=== PATIENT | female | born 1945 | race Caucasian/White ===

== ENCOUNTER 2018-03-11 16:16 | Outpatient (CLI) | payer MEDICARE, OTHER ==
[2018-03-11 17:34] LABS: INR-International Normal Ratio 1.2; PTT 28.5 SEC (22.9-36.1); Prothrombin Time 15.8 SEC (12.0-14.7)
[2018-03-11 17:49] LABS: Anion Gap 12 mmol/L (10-20); BUN (Urea Nitrogen) 17 mg/dL (9.8-20.1); Calc. Creatinine Clearance 0 mL/min (70-130); Calcium 8.7 mg/dL (7.8-10.44); Carbon Dioxide 27 mmol/L (23-31); Chloride 100 mmol/L (98-107); Estimated GFR-MDRD 42; Glucose 444 mg/dL (80-115); Potassium 4.2 mmol/L (3.5-5.1); Sodium 135 mmol/L (136-145)
[2018-03-11 18:11] LABS: Mean Corpuscular Hemoglobin 26.3 pg (27.0-31.0); Mean Platelet Volume 10.4 fL (7.4-10.4); Platelet Count 107 thou/uL (130-400); RBC Distribution Width 13.5 % (11.5-14.5); Red Blood Cell (RBC) Count 4.93 mill/uL (4.20-5.40); White Blood Cell (WBC) Count 9.9 thou/uL (4.8-10.8)
== END 2018-03-11 16:17 | disposition home or self-care (01) ==
LOC: LABBT 16:16
PROVIDERS: ATTEND Neurological Surgery
DX: Z01.812 Encounter for preprocedural laboratory examination (principal); M54.16 Radiculopathy, lumbar region
CPT/HCPCS: 80048; 85027; 85610; 85730

== ENCOUNTER 2018-03-13 05:37 | Day surgery (SDC) | payer MEDICARE, OTHER ==
[2018-03-11 16:29] VITALS: BMI 29.7
--- NOTE | 2018-03-13 01:21 | HP ---
HISTORY OF PRESENT ILLNESS: Ms. Harrison is a very pleasant 72-year-old woman presenting for evaluation of roughly 2-3 months' worth of severe lower back pain on the left side associated with left lower ex tremity L5 pains. This has been present since falling earlier this year. She has had physical thera py with a little to no improvement. She has not had epidural steroid injections yet; however, prefer s not to pursue them. MRI from [facility] reveals lateral disk herniation at L5 with thin foramen fitting her symptoms well. She was referred to discuss possible compression fracture; however, her MRI reveals the presence of superior endplate Schmorl node at T12 and an inferior one at L4, none of which I believe are any consequence to her. PAST MEDICAL HISTORY: Significant for hypertension, diabetes, heart failure, and cirrhosis of the li aggie. CURRENT MEDICATIONS: Include insulin, alprazolam, gabapentin, prednisone, valsartan, potassium, furo semide, carvedilol, and methocarbamol. ALLERGIES: CODEINE, TRAMADOL, and TRAZODONE. PAST SURGICAL HISTORY: Includes hysterectomy, bladder lift, breast biopsy, cervical disk surgery uns pecified, carpal tunnel bilaterally, bilateral knee replacements, pins in the right foot, cholecystec jose, hiatal herniorrhaphy, and a facelift procedure. PHYSICAL EXAMINATION: NEUROLOGIC: The patient is alert and oriented x3. Her gait is severely antalgic and is actually amb ulating using a walker. Lower extremity motor exam is normal. Reflexes are equal and present bilate rally at the patella. ASSESSMENT: Lumbar radiculopathy. PLAN: Discussed the case with Dr. Blankenship who met with the patient, reviewed imaging and advocated for a left L5 foraminotomy. He explained to the patient the risks, benefits, and alternatives to the pr ocedure. The patient expressed understanding and would like to move forward with surgery as june richardson. I do believe the patient is mentally competent and capable of making medical decisions for hersel f and we will move forward with surgery as planned. Darren Sheriff PA-C, dictating for Dr. Blankenship.
[2018-03-13] MEDS ORDERED: Midazolam HCl 2 mg/2 ml Vial ONE (06:11)
[2018-03-13] MEDS ORDERED: Fentanyl 250 MCG/5 ML VIAL ONE (06:11)
[2018-03-13] MEDS ORDERED: Bupivacaine HCl 0.5%/Epinephrine 1:200,000/PF 30 ml Vial ONE (06:16)
[2018-03-13] MEDS ORDERED: Thrombin 5000 UNITS/5 ML VIAL ONE (06:16)
[2018-03-13] MEDS ORDERED: CEFAZOLIN/Water 2 GM/20 ML SYRINGE ONE ×2 (06:26→11:32)
[2018-03-13] MEDS ORDERED: Ondansetron HCl/PF 4 MG/2 ML Vial ONE ×2 (07:04→12:35)
[2018-03-13] MEDS ORDERED: Promethazine HCl 25 MG/ML VIAL SLOW IVP PRN (07:51)
[2018-03-13] MEDS ORDERED: Ondansetron HCl/PF 4 MG/2 ML Vial IVP PRN (07:51)
[2018-03-13] MEDS ORDERED: Fentanyl 100 MCG/2 ML VIAL ONE (08:53)
[2018-03-13] MEDS ORDERED: diphenhydrAMINE 50 MG/ML VIAL ONE (12:35)
[2018-03-13] MEDS ORDERED: Glycopyrrolate 0.2 MG/ML 5 ML SYRINGE ONE (12:35)
[2018-03-13] MEDS ORDERED: Lidocaine 1% PF 5 ML VIAL ONE (12:35)
[2018-03-13] MEDS ORDERED: Dexamethasone 20 MG/5 ML VIAL ONE (12:35)
[2018-03-13] MEDS ORDERED: Naloxone HCl 0.4 mg/ml Vial ONE (12:35)
[2018-03-13] MEDS ORDERED: PHENYLEPHRINE-NS 100 MCG/ML 10 ML SYRINGE ONE (12:35)
[2018-03-13] MEDS ORDERED: PROPOFOL 200 MG/20 ML VIAL ONE (12:35)
--- NOTE | 2018-03-14 13:25 | OP ---
DATE OF PROCEDURE: 03/13/2018 SURGEON: Rayray Blankenship M.D. ADVANCED REGISTERED NURSE: Darren Sheriff PA-C INDICATION: Pain. DIAGNOSIS: Lumbar radiculopathy. PROCEDURES: Left L5 medial facetectomy, foraminotomy, decompression. ANESTHESIA: General. TECHNIQUE: The patient was brought into the operating room and placed under general anesthesia. She was flipped from a supine or prone position on the operating room table. A linear incision was plan bhakti over the L5 segment. After prepping and draping and after an appropriate operative pause, the in cision was created. Soft tissues were swept left of midline and a self-retaining retractor was place d in the wound for optimal exposure. After confirming the appropriate level with serum fluoroscopy, an Adson rongeur was used to remove the lamina of L5 along the inferior aspect. A high-speed cutting drill bit as well as 2, 3 and 4 mm Kerrisons used to extend the laminectomy into the medial aspect o f the facet joint where a foraminotomy was performed of the exiting L5 nerve root. A portion of the superior articulating facet of S1 was removed to further decompress the foramen. The L5 nerve root w as decompressed as it left the foramen on the left. The wound was irrigated. Hemostasis was maintai bhakti throughout. The wound was then closed in anatomic layers and a pressure dressing was applied. T here were no known procedural complications.
== END 2018-03-13 12:40 | disposition home or self-care (01) ==
LOC: SDC 05:37
PROVIDERS: ATTEND Neurological Surgery
PROC: 01NB0ZZ Release Lumbar Nerve, Open Approach (ICD-10-PCS; principal; 2018-03-13)
DX: M54.16 Radiculopathy, lumbar region (principal); I11.0 Hypertensive heart disease with heart failure; I50.9 Heart failure, unspecified; K74.60 Unspecified cirrhosis of liver; E11.40 Type 2 diabetes mellitus with diabetic neuropathy, unspecified; Z79.4 Long term (current) use of insulin; Z79.52 Long term (current) use of systemic steroids; Z79.82 Long term (current) use of aspirin; Z79.899 Other long term (current) drug therapy; Z88.1 Allergy status to other antibiotic agents; Z88.5 Allergy status to narcotic agent; Z88.8 Allergy status to other drugs, medicaments and biological substances
CPT/HCPCS: 36416; 76001; 96374; J0670; J1100; J1200; J2001; J2250; J2310; J2405; J2704; J3010

== ENCOUNTER 2018-03-15 09:29 | Inpatient (IN) | payer MEDICARE, OTHER ==
--- NOTE | 2018-03-15 09:55 | RAD ---
PORTABLE AP CHEST XRAY: DATE: 03/15/18. HISTORY: Dyspnea. The patient had surgery on Sunday at L5 now having trouble breathing and is vomiting. COMPARISON: 09/11/16. FINDINGS: Cardiac silhouette is magnified by projection but does appear mildly enlarged. Pulmonary vasculature is also borderline increased. Bilateral pleural effusions and atelectasis noted on the prior study have resolved. Lungs are otherwise clear. No other interval change. IMPRESSION: Cardiomegaly with borderline increase in the central pulmonary vasculature. POS: [facility]
[2018-03-15 10:33] LABS: #Basophils 0.1 thou/uL (0.0-0.2); #Eosinphils 0.2 thou/uL (0.0-0.7); #Lymphocytes 1.4 thou/uL (1.20-3.40); #Monocytes 1.7 thou/uL (0.11-0.59); #Neutrophils 9.5 thou/uL (1.40-6.50); %Basophils 0.5 % (0.0-1.0); %Eosinophils 1.8 % (0.0-10.0); %Lymphocytes 10.9 % (21.0-51.0); %Monocytes 13.1 % (0.0-10.0); %Neutrophils 73.6 % (42.0-75.0); Hemoglobin 12.3 g/dL (12.0-16.0); Mean Corpuscular HGB CONC 31.5 g/dL (32.0-36.0); Mean Corpuscular Hemoglobin 26.2 pg (27.0-31.0); Mean Corpuscular Volume 83.2 fl (81.0-99.0); Mean Platelet Volume 10.6 fL (7.4-10.4); Platelet Count 119 thou/uL (130-400); RBC Distribution Width 13.7 % (11.5-14.5); White Blood Cell (WBC) Count 12.9 thou/uL (4.8-10.8)
[2018-03-15] MEDS ORDERED: Furosemide 100 MG/10 ML VIAL ONE (10:41)
[2018-03-15] MEDS ORDERED: Nitroglycerin 2% Ointment 1 INCH/1 GM Packet ONE (10:41)
[2018-03-15] MEDS ORDERED: Ondansetron ODT 8 MG TAB ONE (10:41)
[2018-03-15 10:46] LABS: ALT (SGPT) 20 U/L (8-55); AST (SGOT) 34 U/L (5-34); Alkaline Phosphatase 85 U/L (40-150); Anion Gap 14 mmol/L (10-20); BUN (Urea Nitrogen) 21 mg/dL (9.8-20.1); Bilirubin, Total 1.1 mg/dL (0.2-1.2); CK (CPK) 96 U/L (29-168); Calc. Creatinine Clearance 0 mL/min (70-130); Calcium 9.1 mg/dL (7.8-10.44); Carbon Dioxide 25 mmol/L (23-31); Chloride 104 mmol/L (98-107); Estimated GFR-MDRD 50; Globulin 3.2 g/dL (2.4-3.5); Glucose 220 mg/dL (80-115); Magnesium 1.9 mg/dL (1.6-2.6); Potassium 4.1 mmol/L (3.5-5.1); Protein, Total 6.2 g/dL (6.0-8.3); Sodium 139 mmol/L (136-145)
[2018-03-15 10:51] LABS: CKMB 2.5 ng/mL (0-6.6); Troponin I 0.017 ng/mL (< 0.028)
[2018-03-15] MEDS ORDERED: Labetalol HCl 100 MG/20 ML VIAL ONE (11:50)
--- NOTE | 2018-03-15 11:55 | CT ---
CT ANGIGORAM THORAX WITH IV CONTRAST AND 3D RECONSTRUCTIONS: Date: 03/15/18 HISTORY: Dyspnea. Patient also complains of lower back pain. Patient is post lumbar surgery on Sunday. Leslie ent also reports cough that started yesterday and trouble breathing, which has worsened today. FINDINGS: No filling defects are seen in the pulmonary arteries to suggest a pulmonary embolus. Vascular calcifications are seen in the thoracic aorta. Thoracic aorta is normal in caliber. Thoracic aorta is not well opacified to evaluate for aortic dissection. There is no evidence of lymphadenopathy. There is a very tiny left pleural effusion present. There is mild dependent atelectasis bilaterally. There is a tiny, 5.0 mm, pulmonary nodule lateral aspect right upper lobe, as well as a small, less t chiang 4.0 mm, pulmonary nodule seen at the posterior leg lung base. Pulmonary nodule at the left lung b ase was imaged on a CT abdomen on 05/27/16, at which time there was an adjacent nodular density which has now resolved. No additional pulmonary nodule is present. There is a 2.2 cm hypodense lesion posterior aspect dome of the liver. This was present on the prior CT abdomen dated 05/27/16, but measured smaller in size at 1.5 cm. However, differences in measuremen t could be secondary to not only slice selection but differences in pre and postcontrast imaging. Nev ertheless, this is incompletely characterized or evaluated on each of these studies and CT abdomen fo [facility] liver mass protocol is recommended for further evaluation. Again noted is nodular contour of the liver suggesting cirrhosis. Post cholecystectomy changes are imaged. Postsurgical changes in the region of the GE junction are noted. The osseous structures are intact aside from mild degenerative changes in the thoracic spine. IMPRESSION: 1. Hypodense mass posterior dome of liver. Measurements on this examination have increased from prio r study, but this may be a factor of slice selection and/or secondary to difference in pre and postco ntrast imaging. Further characterization is recommended. CT abdomen following hepatic mass protocol i s recommended. 2. Small pulmonary nodules in the right upper lobe and left lower lobe, each of which measures less than 5.0 mm. 3. Atelectasis bilaterally with mild interstitial thickening at each lung base, which is nonspecific . 4. No CT evidence of a pulmonary embolus. 5. Tiny left pleural effusion. POS: [facility]
[2018-03-15] MEDS ORDERED: Mag-Al 1200 mg/1200 mg/30 ML UDCUP PO PRN (11:57)
[2018-03-15] MEDS ORDERED: Calcium Carbonate 500 MG ChewTAB PO PRN (11:57)
[2018-03-15] MEDS ORDERED: Dextrose 5% in Water 1,000 ML IV PRN (11:57)
[2018-03-15] MEDS ORDERED: Senokot 8.6 MG TAB PO PRN (11:57)
[2018-03-15] MEDS ORDERED: Bisacodyl 5 MG TAB PO PRN (11:57)
[2018-03-15] MEDS ORDERED: HumaLOG 300 UNITS/3 ML VIAL SC PRN (11:57)
[2018-03-15] MEDS ORDERED: Dextrose 50% Abboject 50 ML SYRINGE SLOW IVP PRN (11:57)
[2018-03-15] MEDS ORDERED: Acetaminophen 325 MG TAB PO PRN (11:57)
[2018-03-15] MEDS ORDERED: Ondansetron HCl/PF 4 MG/2 ML Vial IVP PRN (11:57)
[2018-03-15] MEDS ORDERED: cloNIDine 0.1 MG TAB PO PRN (12:00)
[2018-03-15] MEDS ORDERED: hydrALAZINE 20 MG/ML VIAL SLOW IVP PRN (12:00)
[2018-03-15 13:36] VITALS: BMI 30.1
[2018-03-15 13:52] LABS: Bilirubin Negative (Negative); Blood, Urine Negative (Negative); Clarity CLEAR (Clear); Glucose, Urine (Dipstick) Negative (Negative); Leukocyte Negative (Negative); Nitrite Negative (Negative); Protein, Urine (Dipstick) Negative (Neg-Trace); Specific Gravity, Urine 1.013 (1.002-1.036); Urobilinogen 0.2 mg/dL (0.2-1.0)
[2018-03-15 14:20] LABS: Troponin I 0.016 ng/mL (< 0.028)
[2018-03-15] MEDS ORDERED: ISOVUE-370 76%-LOCM 1 ML ONE (15:11)
[2018-03-15] MEDS: Furosemide 40 MG/4 ML VIAL SLOW IVP SCH (15:18)
--- NOTE | 2018-03-15 15:21 | HP ---
DATE OF ADMISSION: 03/15/2018 PRIMARY CARE PHYSICIAN: Ricardo Parada M.D. PRIMARY ESCROW PROCESSOR: John Shahid M.D. CHIEF COMPLAINT: Worsening shortness of breath. HISTORY OF PRESENT ILLNESS: Ms. Harrison is a 72-year-old female with past medical history of congestive heart failure, diabetes mellitus, hypertension, and gout, who presented to the emergency room with t he complaints of worsening shortness of breath. History is mainly obtained by the patient herself an d electronic medical records have been reviewed. Ms. Harrison underwent surgery of L5 facetectomy, foraminotomy, and decompression on 03/13/[address] Maurilio manriquez. Since her discharge, she felt okay, but yesterday she started to have shortness of breath that progressively got worse. She also had one episode of vomiting this morning. She reports feeling poo rly and has malaise without any cough, fever, or chills. She denies any other recent illnesses or si ck contacts. Upon presentation to the emergency room, she was saturating 93% under room air, but with conversation , her oxygen saturations were dropping in the low 80s to mid 80s. She was started on oxygen and furt her workup was initiated. She had a 12-lead EKG, which showed some ST-depression in the lateral lead s and a chest x-ray, which was consistent with pulmonary vascular congestion. She also underwent a C T angio of the chest, which was negative for any pulmonary embolism or infiltrate. She was also foun d to be somewhat hypertensive in the systolic of 170s. Her lab work was consistent with leukocytosis with WBCs of 12.9 and the most striking finding was a BNP of over 1000. She was diagnosed as having an acute flare of congestive heart failure and received aspirin, nitro paste, labetalol, and 80 mg o f Lasix x1 in the ER, and is now being admitted for acute hypoxic respiratory failure secondary to [place] congestive heart failure exacerbation. The patient reports that Dr. Shahid has diagnosed her with congestive heart failure, but she is unsur e what type. She also does not recall what her cardiac function is. PAST MEDICAL HISTORY: 1. Congestive heart failure, unspecified type. 2. Hypertension. 3. Diabetes mellitus, type 2. 4. Fatty liver with cirrhosis on CT scan in 2016. 5. Varices. 6. Lichen planus. PAST SURGICAL HISTORY: 1. Hysterectomy. 2. Bladder lift. 3. Breast biopsy. 4. Cervical disk surgery. 5. Carpal tunnel bilaterally. 6. Bilateral knee replacement. 7. Pins of the right foot. 8. Cholecystectomy. 9. Hiatal herniorrhaphy. 10. Facelift. ALLERGIES: CODEINE, TRAMADOL, TRAZODONE. FAMILY HISTORY: Significant for multiple family members with cardiac disease. Her mother and her si ster had heart attacks. Her son got diagnosed with cardiomyopathy and had a pacemaker inserted 2 mon ths ago. One of her nephews in his 40s of heart attack. SOCIAL HISTORY: She lives with her family and has no history of drug, tobacco or alcohol abuse. CURRENT MEDICATIONS: According to the ER record are as follows; alprazolam 0.25 mg daily, gabapentin 400 b.i.d., NovoLog 70/30 100 units b.i.d., Protonix 40 mg daily, prednisone 10 mg daily, valsartan 160 b.i.d., potassium chloride 10 mEq b.i.d., Lasix 40 mg b.i.d., carvedilol 25 b.i.d., Aldactone 25 daily, iron 80 mg daily, vitamin A daily, cholestyramine daily, calcium daily, aspirin 81 mg daily, Z yrtec daily as needed, Benadryl daily as needed, pentazocine/naloxone 50/0.5 mg every 4 hours as need ed, and Keflex 250 mg b.i.d., which she has been taking since her recent surgery of laminectomy. CODE STATUS: DO NOT RESUSCITATE and DO NOT INTUBATE discussed with the patient in detail. REVIEW OF SYSTEMS: The following complete review of systems was negative, unless otherwise mentioned in the HPI or below: Constitutional: Weight loss or gain, ability to conduct usual activities. Skin: Rash, itching. Eyes: Double vision, pain. ENT/Mouth: Nose bleeding, neck stiffness, pain, tenderness. Cardiovascular: Palpitations, dyspnea on exertion, orthopnea. Respiratory: Shortness of breath, wheezing, cough, hemoptysis, fever or night sweats. Gastrointestinal: Poor appetite, abdominal pain, heartburn, nausea, vomiting, constipation, or diarr hea. Genitourinary: Urgency, frequency, dysuria, nocturia. Musculoskeletal: Pain, swelling. Neurologic/Psychiatric: Anxiety, depression. Allergy/Immunologic: Skin rash, bleeding tendency. It is negative except for those mentioned in the history and physical. LABORATORY DATA AND IMAGING DATA: CBC shows WBCs 12.9 with 73% neutrophils, otherwise unremarkable. Serum chemistry shows blood sugar 220 and BUN 21. Cardiac enzymes unremarkable. BNP 1064. Chest x -ray by my review shows evidence of pulmonary vascular congestion. CT angio was negative for pulmona ry embolism and shows mild pleural effusion on the left side. She does have evidence of cardiomegaly . PHYSICAL EXAMINATION: VITAL SIGNS: Upon presentation include blood pressure 167/84, pulse 87, saturating 93% on room air, respirations 24, and temperature 98. GENERAL: No acute distress, awake, alert, oriented x3. HEENT: Mucous membrane is moist and pink. No oropharyngeal exudate or erythema. Head is normocepha lic, atraumatic. Pupils are equal, reactive to light and accommodation. Extraocular movement is int act. NECK: Supple without any lymphadenopathy, JVD or bruit. CHEST: Clear to auscultation with very faint wheezes bilaterally without any significant crackles. CARDIOVASCULAR: Rate and rhythm is regular without any murmur, rubs or gallops. ABDOMEN: Obese, soft, nontender, nondistended, positive bowel sound. No guarding, rebound or rigidi ty. EXTREMITIES: Showed trace pitting edema bilaterally. NEUROLOGIC: Examination is nonfocal. SKIN: Free of any rashes or bruises. I feel warm and dry to touch. BACK: Examination shows Steri-Strips covering the incision in the lower back without erythema, swell ing, drainage. IMPRESSION AND PLAN: 1. Acute hypoxic respiratory failure. This is likely secondary to acute congestive heart failure ex acerbation as evident by the chest x-ray showing pulmonary edema and elevated BNP. She will be admit pauline and we will consult cardiac rehabilitation inpatient and outpatient as well as Heart Failure Clin ic. We will obtain transthoracic echocardiogram and continue the diuresis with strict I's and O's an d fluid restricted diet. 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 Base d on the echocardiogram results, her medication may need to be adjusted. The patient was updated abo ut all of this and verbalized understanding. She will be admitted to telemetry unit. 2. Uncontrolled hypertension. We will restart her home medication as she has missed doses this morn ing because of being in the emergency room. Add p.r.n. medications as needed as well. 3. Diabetes mellitus type 2. We will put her on insulin sliding scale and restart her home medicati ons once confirmed. 4. Leukocytosis, most likely reactive from the most recent surgery of laminectomy. She does not exh ibit any signs and symptoms of infection at this time. We will continue her Keflex that was given pr ophylactically for her. Also check urinalysis to rule out urinary causes as urinary tract infection for leukocytosis. She does not seem to have any evidence of pneumonia at this time. 5. History of nonalcoholic fatty liver. It is unclear if this is a true diagnosis or not. The yesy ent will be continued on pentazocine and naloxone combination along with cholestyramine, Aldactone an d diuretics for now. 6. Code status: DO NOT RESUSCITATE and DO NOT INTUBATE. 7. Deep venous thrombosis and gastrointestinal prophylaxis. 8. Add p.r.n. medications. DISPOSITION: Ms. Harrison is currently being admitted to the hospital for acute hypoxic respiratory fail ure due to acute congestive heart failure exacerbation. Further management will depend upon her clin ical course. Estimated length of stay at this time is at least 2-3 midnights.
[2018-03-15] MEDS ORDERED: Cephalexin 250 MG CAP PO SCH ×2 (15:45→21:30)
[2018-03-15 17:50] LABS: Troponin I 0.024 ng/mL (< 0.028)
[2018-03-15] MEDS ORDERED: Ibuprofen 200 MG TAB PO PRN (18:23)
[2018-03-15] MEDS ORDERED: Carvedilol 25 MG TAB PO SCH (21:15)
[2018-03-15] MEDS ORDERED: predniSONE 5 MG TAB PO SCH (21:30)
[2018-03-15] MEDS ORDERED: Gabapentin 400 MG CAP PO SCH (21:30)
[2018-03-15] MEDS ORDERED: ALPRAZolam 0.25 MG TAB PO SCH (21:30)
[2018-03-15] MEDS ORDERED: Valsartan 80 MG TAB PO SCH (21:30)
[2018-03-16 05:35] LABS: #Eosinphils 0.1 thou/uL (0.0-0.7); #Lymphocytes 0.6 thou/uL (1.20-3.40); #Monocytes 0.5 thou/uL (0.11-0.59); #Neutrophils 5.9 thou/uL (1.40-6.50); %Basophils 0.3 % (0.0-1.0); %Eosinophils 1.3 % (0.0-10.0); %Lymphocytes 8.4 % (21.0-51.0); %Monocytes 7.5 % (0.0-10.0); %Neutrophils 82.4 % (42.0-75.0); Hemoglobin 11.9 g/dL (12.0-16.0); Mean Corpuscular HGB CONC 32.5 g/dL (32.0-36.0); Mean Corpuscular Hemoglobin 27.1 pg (27.0-31.0); Mean Corpuscular Volume 83.4 fl (81.0-99.0); PLT Morphology Comment Appears Decreased; Platelet Count 88 thou/uL (130-400); RBC Distribution Width 13.5 % (11.5-14.5); Red Blood Cell (RBC) Count 4.41 mill/uL (4.20-5.40); White Blood Cell (WBC) Count 7.1 thou/uL (4.8-10.8)
[2018-03-16 05:40] LABS: Anion Gap 11 mmol/L (10-20); BUN (Urea Nitrogen) 20 mg/dL (9.8-20.1); Calc. Creatinine Clearance 60 mL/min (70-130); Calcium 8.8 mg/dL (7.8-10.44); Carbon Dioxide 30 mmol/L (23-31); Chloride 102 mmol/L (98-107); Estimated GFR-MDRD 48; Glucose 316 mg/dL (80-115); Potassium 4.7 mmol/L (3.5-5.1); Sodium 138 mmol/L (136-145)
[2018-03-16] MEDS: Furosemide 40 MG/4 ML VIAL SLOW IVP SCH ×2 (06:33→15:02)
[2018-03-16] MEDS: Spironolactone 25 MG TAB PO SCH (08:47)
[2018-03-16] MEDS: Potassium Citrate 10 MEQ TAB PO SCH ×2 (08:47→17:26)
[2018-03-16] MEDS: Carvedilol 25 MG TAB PO SCH ×2 (08:47→20:47)
[2018-03-16] MEDS: Valsartan 80 MG TAB PO SCH ×2 (08:48→20:40)
[2018-03-16] MEDS: Cephalexin 250 MG CAP PO SCH ×2 (08:48→20:39)
[2018-03-16] MEDS: Gabapentin 400 MG CAP PO SCH ×2 (08:48→20:46)
[2018-03-16] MEDS: Enoxaparin Sodium 40 MG/0.4 ML SYRINGE SC SCH (08:49)
[2018-03-16] MEDS ORDERED: Famotidine 20 MG TAB PO SCH (09:00)
[2018-03-16] MEDS ORDERED: Aspirin 325 mg Enteric Coated Tablet PO SCH (09:00)
[2018-03-16] MEDS ORDERED: Pentazocine HCl/Naloxone HCl 50/0.5 MG TAB PO PRN (09:42)
--- NOTE | 2018-03-16 11:11 | PDOC.PN ---
- Subjective Encounter Start Date: 03/16/18 Encounter Start Time: 08:00 -: old records requested/rev Patient seen and examined. No new complaints. No overnight events - Objective Resuscitation Status: Resuscitation Status DNR:Do Not Resuscitate MAR Reviewed: Yes Vital Signs & Weight: Vital Signs (12 hours) Temp Pulse Resp BP BP Pulse Ox 03/16/18 07:17 97.8 F 81 17 140/62 96 03/16/18 04:00 97.9 F 81 18 147/65 H 97 03/16/18 00:00 98.1 F 79 18 131/59 L 98 Weight Weight 179 lb I&O: 03/15/18 03/16/18 03/17/18 06:59 06:59 06:59 Intake Total 1100 Output Total 1050 Balance 50 Result Diagrams: 03/16/18 04:14 03/16/18 04:14 Additional Labs: Accuchecks 03/16/18 03/15/18 03/15/18 06:14 15:41 13:31 POC Glucose 308 H 203 H 143 H Radiology Reviewed by me: Yes (CT angio) EKG Reviewed by me: Yes (NSR) Phys Exam - Physical Examination Constitutional: NAD HEENT: PERRLA, moist MMs, sclera anicteric Neck: no JVD, supple Respiratory: no wheezing, no rales, no rhonchi Cardiovascular: RRR, no significant murmur, no rub Gastrointestinal: soft, non-tender, no distention, positive bowel sounds Musculoskeletal: no edema, pulses present Neurological: non-focal, normal sensation, moves all 4 limbs Psychiatric: normal affect, A&O x 3 Skin: no rash, normal turgor Dx/Plan (1) Acute on chronic congestive heart failure Code(s): I50.9 - HEART FAILURE, UNSPECIFIED Status: Acute (2) Acute respiratory failure with hypoxia Code(s): J96.01 - ACUTE RESPIRATORY FAILURE WITH HYPOXIA Status: Acute (3) Thrombocytopenia Code(s): D69.6 - THROMBOCYTOPENIA, UNSPECIFIED Status: Acute (4) Cirrhosis, non-alcoholic Status: Chronic (5) Diabetes type 2, controlled Code(s): E11.9 - TYPE 2 DIABETES MELLITUS WITHOUT COMPLICATIONS Status: Chronic (6) Hiatal hernia Code(s): K44.9 - DIAPHRAGMATIC HERNIA WITHOUT OBSTRUCTION OR GANGRENE Status: Chronic (7) Hypertension Code(s): I10 - ESSENTIAL (PRIMARY) HYPERTENSION Status: Chronic (8) S/P lumbar laminectomy Code(s): Z98.890 - OTHER SPECIFIED POSTPROCEDURAL STATES Status: Chronic - Plan cont current plan of care, continue antibiotics * medication reviewed as below * symptomatic treatment * restart her home pain meds * echo pending * wbc is related with prednisone. Review of Systems - Review of Systems Eyes: negative: Pain, Vision Change, Conjunctivae Inflammation, Eyelid Inflammation, Redness, Other ENT: negative: Ear Pain, Ear Discharge, Nose Pain, Nose Discharge, Nose Congestion, Mouth Pain, Mouth Swelling, Throat Pain, Throat Swelling, Other Respiratory: negative: Cough, Dry, Shortness of Breath, Hemoptysis, SOB with Excertion, Pleuritic Pain, Sputum, Wheezing Cardiovascular: negative: chest pain, palpitations, orthopnea, paroxysmal nocturnal dyspnea, edema, light headedness, other Gastrointestinal: negative: Nausea, Vomiting, Abdominal Pain, Diarrhea, Constipation, Melena, Hematochezia, Other Genitourinary: negative: Dysuria, Frequency, Incontinence, Hematuria, Retention , Other Musculoskeletal: Back Pain. negative: Neck Pain, Shoulder Pain, Arm Pain, Hand Pain, Leg Pain, Foot Pain, Other Skin: negative: Rash, Lesions, Ned, Bruising, Other - Medications/Allergies Allergies/Adverse Reactions: Allergies Allergy/AdvReac Type Severity Reaction Status Date / Time clindamycin Allergy "severe Verified 07/07/16 12:37 diarrhea" codeine Allergy itching Verified 07/07/16 12:37 cyproheptadine Allergy itching Verified 07/07/16 12:37 doxepin Allergy "high Verified 07/07/16 12:37 anxiety" hydrocodone bitartrate Allergy "puts me Verified 07/07/16 12:37 [From Vicodin] up on the ceiling" levofloxacin [From Levaquin] Allergy "nausea Verified 07/07/16 12:37 and diarrhea" tramadol Allergy Headache Verified 03/11/18 16:31 trazodone Allergy "could not Verified 07/07/16 12:37 sleep, confused; high anxiety" Medications: Current Medications Acetaminophen (Tylenol) 650 mg PO Q4H PRN PRN Reason: Headache/Fever or Pain Last Admin: 03/15/18 18:21 Dose: 650 mg Al Hydroxide/Mg Hydroxide (Maalox) 30 ml PO Q6H PRN PRN Reason: Heartburn or Indigestion Alprazolam (Xanax) 0.25 mg PO HS [facility] Aspirin (Aspirin Chewable) 81 mg PO QAM [facility] Last Admin: 03/16/18 08:47 Dose: 81 mg Bisacodyl (Dulcolax) 10 mg PO DAILYPRN PRN PRN Reason: Constipation Calcium Carbonate (Tums) 1,000 mg PO Q4H PRN PRN Reason: Heartburn or Indigestion Carvedilol (Coreg) 25 mg PO BID [facility] Last Admin: 03/16/18 08:47 Dose: 25 mg Cephalexin (Keflex) 500 mg PO BID [facility] Last Admin: 03/16/18 08:48 Dose: 500 mg Clonidine (Catapres) 0.1 mg PO Q4H PRN PRN Reason: sbp>160 Dextrose/Water (Dextrose 50%) 25 gm SLOW IVP PRN PRN PRN Reason: Hypoglycemia Enoxaparin Sodium (Lovenox) 40 mg SC 0900 [facility] Last Admin: 03/16/18 08:49 Dose: 40 mg Furosemide (Lasix) 40 mg SLOW IVP 0600,1400 [facility] Last Admin: 03/16/18 06:33 Dose: 40 mg Gabapentin (Neurontin) 400 mg PO BID [facility] Last Admin: 03/16/18 08:48 Dose: 400 mg Glucagon (Glucagon) 1 mg IM PRN PRN PRN Reason: Hypoglycemia Hydralazine HCl (Apresoline) 10 mg SLOW IVP Q4H PRN PRN Reason: sbp>170 Dextrose/Water (D5w) 1,000 mls @ 0 mls/hr IV .Q0M PRN; As Directed PRN Reason: Hypoglycemia Ibuprofen (Motrin) 400 mg PO BID PRN PRN Reason: Mild Pain (1-3) Insulin Human Lispro (Humalog) 0 units SC .MODERATE SLIDING SC PRN PRN Reason: Moderate Correctional Scale Last Admin: 03/16/18 11:13 Dose: 10 unit Insulin Human Lispro (Humalog) 0 units SC .BEDTIME SLIDING SC PRN PRN Reason: Bedtime Correctional Scale Ondansetron HCl (Zofran) 4 mg IVP Q6H PRN PRN Reason: Nausea/Vomiting Pantoprazole Sodium (Protonix) 40 mg PO DAILY [facility] Last Admin: 03/16/18 08:48 Dose: 40 mg Pentazocine HCl/Naloxone HCl (Talwin Nx) 1 tab PO Q4H PRN PRN Reason: Pain Last Admin: 03/16/18 10:02 Dose: 1 tab Potassium Citrate (Urocit K) 10 meq PO BID-[facility] Last Admin: 03/16/18 08:47 Dose: 10 meq Prednisone (Prednisone) 10 mg PO 1200 [facility] Last Admin: 03/16/18 11:17 Dose: 10 mg Senna (Senokot) 2 tab PO HSPRN PRN PRN Reason: Constipation Spironolactone (Aldactone) 25 mg PO QAM-[facility] Last Admin: 03/16/18 08:47 Dose: 25 mg Valsartan (Diovan) 160 mg PO BID [facility] Last Admin: 03/16/18 08:48 Dose: 160 mg
[2018-03-16] MEDS: HumaLOG 300 UNITS/3 ML VIAL SC PRN (11:13)
[2018-03-16] MEDS ORDERED: Loperamide HCl 2 MG CAP PO PRN (11:13)
[2018-03-16] MEDS ORDERED: Diabetic Tussin 200 MG/10 ML UDCUP PO PRN (11:13)
[2018-03-16] MEDS ORDERED: Milk Of Magnesia 30 ML UDCUP PO PRN (11:13)
[2018-03-16] MEDS ORDERED: Temazepam 15 MG CAP PO PRN (11:13)
[2018-03-16] MEDS ORDERED: Eucerin (Mineral Oil/Petrolatum,White) 30 gm Jar TOP PRN (11:13)
[2018-03-16] MEDS ORDERED: Artificial Tears 18 DROP/0.9 ML EA EYE PRN (11:13)
[2018-03-16] MEDS ORDERED: Sodium Chloride 0.65% Nasal 44 ML BOT EA NARE PRN (11:13)
[2018-03-16] MEDS ORDERED: Chloraseptic Spray 180 ml Bottle PO PRN (11:13)
[2018-03-16] MEDS: predniSONE 5 MG TAB PO SCH (11:17)
[2018-03-16] MEDS: Insulin NPH/Reg Insulin Hm 300 UNITS/3 ML VIAL SC SCH ×2 (17:26→22:33)
[2018-03-16] MEDS ORDERED: ALPRAZolam 0.25 MG TAB PO SCH ×2 (21:00)
--- NOTE | 2018-03-17 06:00 | PDOC.PN ---
- Subjective Encounter Start Date: 03/17/18 Encounter Start Time: 07:45 Patient seen and examined. No new complaints. No overnight events - Objective Resuscitation Status: Resuscitation Status DNR:Do Not Resuscitate MAR Reviewed: Yes Vital Signs & Weight: Vital Signs (12 hours) Temp Pulse Resp BP Pulse Ox 03/16/18 20:00 98.3 F 93 18 165/72 H 97 Weight Weight 178 lb I&O: 03/15/18 03/16/18 03/17/18 06:59 06:59 06:59 Intake Total 1100 980 Output Total 1050 1700 Balance 50 -720 Result Diagrams: 03/16/18 04:14 03/16/18 04:14 Additional Labs: Accuchecks 03/16/18 03/16/18 03/16/18 21:23 16:21 15:20 POC Glucose 419 H 389 H 281 H 03/16/18 03/16/18 10:34 06:14 POC Glucose 482 H 308 H EKG Reviewed by me: Yes (nsr) Phys Exam - Physical Examination Constitutional: NAD HEENT: PERRLA, moist MMs, sclera anicteric Neck: no JVD, supple Respiratory: no wheezing, no rales, no rhonchi Cardiovascular: RRR, no significant murmur, no rub Gastrointestinal: soft, non-tender, no distention, positive bowel sounds Musculoskeletal: no edema, pulses present Neurological: non-focal, normal sensation, moves all 4 limbs Psychiatric: normal affect, A&O x 3 Skin: no rash, normal turgor Dx/Plan (1) Acute on chronic congestive heart failure Code(s): I50.9 - HEART FAILURE, UNSPECIFIED Status: Acute Qualifiers: Heart failure type: diastolic Qualified Code(s): I50.33 - Acute on chronic diastolic (congestive) heart failure (2) Acute respiratory failure with hypoxia Code(s): J96.01 - ACUTE RESPIRATORY FAILURE WITH HYPOXIA Status: Resolved (3) Thrombocytopenia Code(s): D69.6 - THROMBOCYTOPENIA, UNSPECIFIED Status: Acute (4) Cirrhosis, non-alcoholic Status: Chronic (5) Diabetes type 2, controlled Code(s): E11.9 - TYPE 2 DIABETES MELLITUS WITHOUT COMPLICATIONS Status: Chronic (6) Hiatal hernia Code(s): K44.9 - DIAPHRAGMATIC HERNIA WITHOUT OBSTRUCTION OR GANGRENE Status: Chronic (7) Hypertension Code(s): I10 - ESSENTIAL (PRIMARY) HYPERTENSION Status: Chronic (8) S/P lumbar laminectomy Code(s): Z98.890 - OTHER SPECIFIED POSTPROCEDURAL STATES Status: Chronic - Plan cont current plan of care * increase insulin dose for high sugar * echo result pending * repeat labs tomorrow. * change lasix po * medication reviewed as below * symptomatic treatment * expecting discharge tomorrow Review of Systems - Review of Systems Constitutional: negative: fever, chills, sweats, weakness, malaise, other ENT: negative: Ear Pain, Ear Discharge, Nose Pain, Nose Discharge, Nose Congestion, Mouth Pain, Mouth Swelling, Throat Pain, Throat Swelling, Other Respiratory: negative: Cough, Dry, Shortness of Breath, Hemoptysis, SOB with Excertion, Pleuritic Pain, Sputum, Wheezing Cardiovascular: negative: chest pain, palpitations, orthopnea, paroxysmal nocturnal dyspnea, edema, light headedness, other Gastrointestinal: negative: Nausea, Vomiting, Abdominal Pain, Diarrhea, Constipation, Melena, Hematochezia, Other Genitourinary: negative: Dysuria, Frequency, Incontinence, Hematuria, Retention , Other Musculoskeletal: negative: Neck Pain, Shoulder Pain, Arm Pain, Back Pain, Hand Pain, Leg Pain, Foot Pain, Other Skin: negative: Rash, Lesions, Ned, Bruising, Other - Medications/Allergies Allergies/Adverse Reactions: Allergies Allergy/AdvReac Type Severity Reaction Status Date / Time clindamycin Allergy "severe Verified 07/07/16 12:37 diarrhea" codeine Allergy itching Verified 07/07/16 12:37 cyproheptadine Allergy itching Verified 07/07/16 12:37 doxepin Allergy "high Verified 07/07/16 12:37 anxiety" hydrocodone bitartrate Allergy "puts me Verified 07/07/16 12:37 [From Vicodin] up on the ceiling" levofloxacin [From Levaquin] Allergy "nausea Verified 07/07/16 12:37 and diarrhea" tramadol Allergy Headache Verified 03/11/18 16:31 trazodone Allergy "could not Verified 07/07/16 12:37 sleep, confused; high anxiety" Medications: Current Medications Acetaminophen (Tylenol) 650 mg PO Q4H PRN PRN Reason: Headache/Fever or Pain Last Admin: 03/15/18 18:21 Dose: 650 mg Al Hydroxide/Mg Hydroxide (Maalox) 30 ml PO Q6H PRN PRN Reason: Heartburn or Indigestion Artificial Tears (Tears Naturale) 0 drop EA EYE PRN PRN PRN Reason: Dry Eyes Aspirin (Aspirin Chewable) 81 mg PO QAM [facility] Last Admin: 03/16/18 08:47 Dose: 81 mg Bisacodyl (Dulcolax) 10 mg PO DAILYPRN PRN PRN Reason: Constipation Calcium Carbonate (Tums) 1,000 mg PO Q4H PRN PRN Reason: Heartburn or Indigestion Carvedilol (Coreg) 25 mg PO BID [facility] Last Admin: 03/16/18 20:47 Dose: 25 mg Cephalexin (Keflex) 500 mg PO BID [facility] Last Admin: 03/16/18 20:39 Dose: 500 mg Clonidine (Catapres) 0.1 mg PO Q4H PRN PRN Reason: sbp>160 Dextrose/Water (Dextrose 50%) 25 gm SLOW IVP PRN PRN PRN Reason: Hypoglycemia Enoxaparin Sodium (Lovenox) 40 mg SC 0900 [facility] Last Admin: 03/16/18 08:49 Dose: 40 mg Furosemide (Lasix) 40 mg SLOW IVP 0600,1400 [facility] Last Admin: 03/16/18 15:02 Dose: 40 mg Gabapentin (Neurontin) 400 mg PO BID [facility] Last Admin: 03/16/18 20:46 Dose: 400 mg Glucagon (Glucagon) 1 mg IM PRN PRN PRN Reason: Hypoglycemia Guaifenesin (Robitussin Sf) 200 mg PO Q4H PRN PRN Reason: Cough Hydralazine HCl (Apresoline) 10 mg SLOW IVP Q4H PRN PRN Reason: sbp>170 Dextrose/Water (D5w) 1,000 mls @ 0 mls/hr IV .Q0M PRN; As Directed PRN Reason: Hypoglycemia Ibuprofen (Motrin) 400 mg PO BID PRN PRN Reason: Mild Pain (1-3) Insulin Human Isoph/Insulin Regular (Humulin 70/30) 20 units SC TID [facility] Last Admin: 03/16/18 22:33 Dose: 20 unit Insulin Human Lispro (Humalog) 0 units SC .MODERATE SLIDING SC PRN PRN Reason: Moderate Correctional Scale Last Admin: 03/16/18 11:13 Dose: 10 unit Insulin Human Lispro (Humalog) 0 units SC .BEDTIME SLIDING SC PRN PRN Reason: Bedtime Correctional Scale Loperamide HCl (Imodium) 2 mg PO PRN PRN PRN Reason: Diarrhea/Loose Stools Magnesium Hydroxide (Milk Of Magnesium) 30 ml PO DAILYPRN PRN PRN Reason: Constipation Mineral Oil/White Petrolatum (Eucerin Cream) 0 gm TOP BIDPRN PRN PRN Reason: Dry Skin Ondansetron HCl (Zofran) 4 mg IVP Q6H PRN PRN Reason: Nausea/Vomiting Pantoprazole Sodium (Protonix) 40 mg PO DAILY [facility] Last Admin: 03/16/18 08:48 Dose: 40 mg Pentazocine HCl/Naloxone HCl (Talwin Nx) 1 tab PO Q4H PRN PRN Reason: Pain Last Admin: 03/16/18 10:02 Dose: 1 tab Phenol (Chloraseptic [place] 180 Ml Bot) 0 ml PO PRN PRN PRN Reason: Sore Throat Potassium Citrate (Urocit K) 10 meq PO BID-[facility] Last Admin: 03/16/18 17:26 Dose: 10 meq Prednisone (Prednisone) 10 mg PO 1200 [facility] Last Admin: 03/16/18 11:17 Dose: 10 mg Senna (Senokot) 2 tab PO HSPRN PRN PRN Reason: Constipation Sodium Chloride ([place] Nasal [place] 0.65%) 0 ml EA NARE QIDPRN PRN PRN Reason: Nasal Congestion Spironolactone (Aldactone) 25 mg PO QAM-[facility] Last Admin: 03/16/18 08:47 Dose: 25 mg Temazepam (Restoril) 15 mg PO HSPRN PRN PRN Reason: Insomnia Valsartan (Diovan) 160 mg PO BID [facility] Last Admin: 03/16/18 20:40 Dose: 160 mg
[2018-03-17] MEDS: Furosemide 40 MG/4 ML VIAL SLOW IVP SCH ×2 (06:41→14:18)
[2018-03-17] MEDS: Insulin NPH/Reg Insulin Hm 300 UNITS/3 ML VIAL SC SCH ×3 (08:41→21:37)
[2018-03-17] MEDS: Carvedilol 25 MG TAB PO SCH ×2 (08:42→21:35)
[2018-03-17] MEDS: Gabapentin 400 MG CAP PO SCH ×2 (08:42→21:36)
[2018-03-17] MEDS: Spironolactone 25 MG TAB PO SCH (08:42)
[2018-03-17] MEDS: Cephalexin 250 MG CAP PO SCH ×2 (08:42→21:35)
[2018-03-17] MEDS: Valsartan 80 MG TAB PO SCH ×2 (08:42→21:36)
[2018-03-17] MEDS: Enoxaparin Sodium 40 MG/0.4 ML SYRINGE SC SCH (08:45)
[2018-03-17] MEDS: Potassium Citrate 10 MEQ TAB PO SCH ×2 (08:50→17:38)
[2018-03-17] MEDS: predniSONE 5 MG TAB PO SCH (11:58)
[2018-03-17] MEDS: HumaLOG 300 UNITS/3 ML VIAL SC PRN ×2 (11:58→16:40)
[2018-03-18 05:57] LABS: Anion Gap 13 mmol/L (10-20); BUN (Urea Nitrogen) 21 mg/dL (9.8-20.1); Calc. Creatinine Clearance 58 mL/min (70-130); Carbon Dioxide 29 mmol/L (23-31); Chloride 98 mmol/L (98-107); Estimated GFR-MDRD 46; Glucose 226 mg/dL (80-115); Potassium 3.8 mmol/L (3.5-5.1); Sodium 136 mmol/L (136-145)
[2018-03-18] MEDS ORDERED: Insulin NPH/Reg Insulin Hm 300 UNITS/3 ML VIAL SC SCH (06:47)
[2018-03-18 07:23] VITALS: TEMP 98
[2018-03-18] MEDS: Valsartan 80 MG TAB PO SCH (08:08)
[2018-03-18] MEDS: Potassium Citrate 10 MEQ TAB PO SCH (08:08)
[2018-03-18] MEDS: Carvedilol 25 MG TAB PO SCH (08:09)
[2018-03-18] MEDS: Gabapentin 400 MG CAP PO SCH (08:09)
[2018-03-18] MEDS: Cephalexin 250 MG CAP PO SCH (08:09)
[2018-03-18] MEDS: Enoxaparin Sodium 40 MG/0.4 ML SYRINGE SC SCH (08:09)
[2018-03-18] MEDS: Spironolactone 25 MG TAB PO SCH (08:09)
[2018-03-18] MEDS ORDERED: Furosemide 40 MG TAB PO SCH (09:00)
[2018-03-18] MEDS ORDERED: Potassium Chloride 20 MEQ TAB PO SCH (09:30)
--- NOTE | 2018-03-18 09:40 | PDOC.PN ---
- Subjective Encounter Start Date: 03/18/18 Encounter Start Time: 07:30 Patient seen and examined. No new complaints. No overnight events - Objective Resuscitation Status: Resuscitation Status DNR:Do Not Resuscitate MAR Reviewed: Yes Vital Signs & Weight: Vital Signs (12 hours) Temp Pulse Resp BP Pulse Ox 03/18/18 08:00 98.0 F 77 17 03/18/18 07:21 98.0 F 77 17 151/67 H 93 L 03/18/18 04:00 97.7 F 74 18 133/61 Weight Weight 167 lb 11.2 oz I&O: 03/17/18 03/18/18 03/19/18 06:59 06:59 06:59 Intake Total 1220 1140 Output Total 2900 2500 Balance -1680 -1360 Result Diagrams: 03/16/18 04:14 03/18/18 04:09 Additional Labs: Accuchecks 03/17/18 03/17/18 03/17/18 20:40 16:37 11:00 POC Glucose 436 H 185 H 239 H Radiology Reviewed by me: Yes (echo) EKG Reviewed by me: Yes (nsr) Phys Exam - Physical Examination Constitutional: NAD HEENT: PERRLA, moist MMs, sclera anicteric Neck: no JVD, supple Respiratory: no wheezing, no rales, no rhonchi Cardiovascular: RRR, no rub SM+ parasternal Gastrointestinal: soft, non-tender, no distention, positive bowel sounds Musculoskeletal: no edema, pulses present Neurological: non-focal, normal sensation, moves all 4 limbs Lymphatic: no nodes Psychiatric: normal affect, A&O x 3 Skin: no rash, normal turgor Dx/Plan (1) Acute on chronic systolic CHF, NYHA class 2 and ACC/AHA stage C Code(s): I50.23 - ACUTE ON CHRONIC SYSTOLIC (CONGESTIVE) HEART FAILURE Status : Acute (2) Acute respiratory failure with hypoxia Code(s): J96.01 - ACUTE RESPIRATORY FAILURE WITH HYPOXIA Status: Resolved (3) Thrombocytopenia Code(s): D69.6 - THROMBOCYTOPENIA, UNSPECIFIED Status: Acute (4) Cirrhosis, non-alcoholic Status: Chronic (5) Diabetes type 2, controlled Code(s): E11.9 - TYPE 2 DIABETES MELLITUS WITHOUT COMPLICATIONS Status: Chronic (6) Hiatal hernia Code(s): K44.9 - DIAPHRAGMATIC HERNIA WITHOUT OBSTRUCTION OR GANGRENE Status: Chronic (7) Hypertension Code(s): I10 - ESSENTIAL (PRIMARY) HYPERTENSION Status: Chronic (8) S/P lumbar laminectomy Code(s): Z98.890 - OTHER SPECIFIED POSTPROCEDURAL STATES Status: Chronic (9) Severe mitral regurgitation Code(s): I34.0 - NONRHEUMATIC MITRAL (VALVE) INSUFFICIENCY Status: Chronic - Plan cont current plan of care * pt has chronic systolic CHF, she follows dr tripp * she had negative cardiac cath last year * will consult cardiology for life vest evaluation * currently euvolemic * medication reviewed as below * symptomatic treatment. Review of Systems - Review of Systems Eyes: negative: Pain, Vision Change, Conjunctivae Inflammation, Eyelid Inflammation, Redness, Other ENT: negative: Ear Pain, Ear Discharge, Nose Pain, Nose Discharge, Nose Congestion, Mouth Pain, Mouth Swelling, Throat Pain, Throat Swelling, Other Respiratory: negative: Cough, Dry, Shortness of Breath, Hemoptysis, SOB with Excertion, Pleuritic Pain, Sputum, Wheezing Cardiovascular: negative: chest pain, palpitations, orthopnea, paroxysmal nocturnal dyspnea, edema, light headedness, other Gastrointestinal: negative: Nausea, Vomiting, Abdominal Pain, Diarrhea, Constipation, Melena, Hematochezia, Other Genitourinary: negative: Dysuria, Frequency, Incontinence, Hematuria, Retention , Other Musculoskeletal: negative: Neck Pain, Shoulder Pain, Arm Pain, Back Pain, Hand Pain, Leg Pain, Foot Pain, Other Skin: negative: Rash, Lesions, Ned, Bruising, Other - Medications/Allergies Allergies/Adverse Reactions: Allergies Allergy/AdvReac Type Severity Reaction Status Date / Time clindamycin Allergy "severe Verified 07/07/16 12:37 diarrhea" codeine Allergy itching Verified 07/07/16 12:37 cyproheptadine Allergy itching Verified 07/07/16 12:37 doxepin Allergy "high Verified 07/07/16 12:37 anxiety" hydrocodone bitartrate Allergy "puts me Verified 07/07/16 12:37 [From Vicodin] up on the ceiling" levofloxacin [From Levaquin] Allergy "nausea Verified 07/07/16 12:37 and diarrhea" tramadol Allergy Headache Verified 03/11/18 16:31 trazodone Allergy "could not Verified 07/07/16 12:37 sleep, confused; high anxiety" Medications: Current Medications Acetaminophen (Tylenol) 650 mg PO Q4H PRN PRN Reason: Headache/Fever or Pain Last Admin: 03/15/18 18:21 Dose: 650 mg Al Hydroxide/Mg Hydroxide (Maalox) 30 ml PO Q6H PRN PRN Reason: Heartburn or Indigestion Artificial Tears (Tears Naturale) 0 drop EA EYE PRN PRN PRN Reason: Dry Eyes Aspirin (Aspirin Chewable) 81 mg PO QAM [facility] Last Admin: 03/18/18 08:09 Dose: 81 mg Bisacodyl (Dulcolax) 10 mg PO DAILYPRN PRN PRN Reason: Constipation Calcium Carbonate (Tums) 1,000 mg PO Q4H PRN PRN Reason: Heartburn or Indigestion Carvedilol (Coreg) 25 mg PO BID [facility] Last Admin: 03/18/18 08:09 Dose: 25 mg Cephalexin (Keflex) 500 mg PO BID [facility] Last Admin: 03/18/18 08:09 Dose: 500 mg Clonidine (Catapres) 0.1 mg PO Q4H PRN PRN Reason: sbp>160 Dextrose/Water (Dextrose 50%) 25 gm SLOW IVP PRN PRN PRN Reason: Hypoglycemia Enoxaparin Sodium (Lovenox) 40 mg SC 0900 [facility] Last Admin: 03/18/18 08:09 Dose: Not Given Furosemide (Lasix) 40 mg PO 0900,1400 [facility] Last Admin: 03/18/18 08:09 Dose: 40 mg Gabapentin (Neurontin) 400 mg PO BID [facility] Last Admin: 03/18/18 08:09 Dose: 400 mg Glucagon (Glucagon) 1 mg IM PRN PRN PRN Reason: Hypoglycemia Guaifenesin (Robitussin Sf) 200 mg PO Q4H PRN PRN Reason: Cough Hydralazine HCl (Apresoline) 10 mg SLOW IVP Q4H PRN PRN Reason: sbp>170 Dextrose/Water (D5w) 1,000 mls @ 0 mls/hr IV .Q0M PRN; As Directed PRN Reason: Hypoglycemia Insulin Human Isoph/Insulin Regular (Humulin 70/30) 30 units SC TID [facility] Last Admin: 03/18/18 08:10 Dose: 30 unit Insulin Human Lispro (Humalog) 0 units SC .MODERATE SLIDING SC PRN PRN Reason: Moderate Correctional Scale Last Admin: 03/17/18 16:40 Dose: 2 unit Insulin Human Lispro (Humalog) 0 units SC .BEDTIME SLIDING SC PRN PRN Reason: Bedtime Correctional Scale Loperamide HCl (Imodium) 2 mg PO PRN PRN PRN Reason: Diarrhea/Loose Stools Magnesium Hydroxide (Milk Of Magnesium) 30 ml PO DAILYPRN PRN PRN Reason: Constipation Mineral Oil/White Petrolatum (Eucerin Cream) 0 gm TOP BIDPRN PRN PRN Reason: Dry Skin Ondansetron HCl (Zofran) 4 mg IVP Q6H PRN PRN Reason: Nausea/Vomiting Pantoprazole Sodium (Protonix) 40 mg PO DAILY [facility] Last Admin: 03/18/18 08:09 Dose: 40 mg Pentazocine HCl/Naloxone HCl (Talwin Nx) 1 tab PO Q4H PRN PRN Reason: Pain Last Admin: 03/16/18 10:02 Dose: 1 tab Phenol (Chloraseptic [place] 180 Ml Bot) 0 ml PO PRN PRN PRN Reason: Sore Throat Potassium Chloride (K-Dur) 40 meq PO NOW [facility] Stop: 03/18/18 12:00 Potassium Chloride (Klor-Con 10) 10 meq PO BID-[facility] Prednisone (Prednisone) 10 mg PO 1200 [facility] Last Admin: 03/17/18 11:58 Dose: 10 mg Senna (Senokot) 2 tab PO HSPRN PRN PRN Reason: Constipation Sodium Chloride ([place] Nasal [place] 0.65%) 0 ml EA NARE QIDPRN PRN PRN Reason: Nasal Congestion Sodium Chloride (Flush - Normal Saline) 10 ml IVF Q12HR [facility] Last Admin: 03/18/18 08:11 Dose: 10 ml Sodium Chloride (Flush - Normal Saline) 10 ml IVF PRN PRN PRN Reason: Saline Flush Spironolactone (Aldactone) 25 mg PO QA-[facility] Last Admin: 03/18/18 08:09 Dose: 25 mg Temazepam (Restoril) 15 mg PO HSPRN PRN PRN Reason: Insomnia Valsartan (Diovan) 160 mg PO BID [facility] Last Admin: 03/18/18 08:08 Dose: 160 mg
--- NOTE | 2018-03-18 10:41 | CON ---
DATE OF CONSULTATION: 03/18/2018 REASON FOR CONSULTATION: Congestive heart failure. PRIMARY DIGITAL ACCOUNT COORDINATOR: Dr. John Shahid HISTORY: Ms. Sydnee Harrison is a pleasant 72-year-old woman with history of congestive heart failure, systolic, who was admitted to the hospital with an episode of congestive heart failure subsequent to a recent surgery. Ms. Harrison has a history of congestive heart failure. She said she underwent cardiac catheterization e ither the end of last year or early this year which showed no obstructive coronary disease. She was found to have an ejection fraction she says in the 25-30% range. She said it did increase to some de gree subsequently on medication. She recently underwent surgery here on 03/13/2018. She had surgery by Dr. Blankenship. Her problem was a lumbar radiculopathy. She had surgery for that. She presented her e on the with congestive heart failure. She has been treated with intravenous diuretics has bee n changed to oral diuretics, now she is breathing back to normal. No chest pain. MEDICATIONS: 1. She is on furosemide now changed to 40 mg twice daily. 2. Spironolactone 25 mg a day. 3. Carvedilol 25 mg twice a day. 4. Keflex. 5. Potassium 10 mEq twice a day. 6. Prednisone. MEDICATIONS AT HOME: She was taking valsartan, spironolactone 25 mg a day, carvedilol 25 mg twice a day, furosemide 40 mg twice a day. She was not on potassium and her potassium level was normal when she came in. ALLERGIES: CLINDAMYCIN, CODEINE, DOXEPIN. SOCIAL HISTORY: No alcohol or tobacco. REVIEW OF SYSTEMS: CONSTITUTIONAL: No significant weight gain or loss. VISION: No changes. HEARING: No changes. PULMONARY: No cough or wheezing. GASTROINTESTINAL: No nausea, vomiting, diarrhea. SKIN: No rashes. NEUROLOGIC: No unilateral weakness or numbness. PSYCHIATRIC: No unusual depression or anxiety. PHYSICAL EXAMINATION: GENERAL: This is a pleasant 72-year-old woman in no distress. VITAL SIGNS: Blood pressure 131/61 earlier, then 151/67, pulse 76 regular. NECK: Neck veins normal. Carotid normal upstrokes, no bruits. LUNGS: Clear, no wheezing, rales or rhonchi. CARDIAC: Normal S1, normal S2. There is no murmur, rub or gallop. ABDOMEN: Soft, nontender. EXTREMITIES: No clubbing or cyanosis. There is no edema. Peripheral pulses are intact and pedal pu lses. PERTINENT LABORATORY: Troponin level peaked at 0.024, glucose 436, creatinine is 1.16. Potassium is 3.8, it was 4.1 on admission and 4.7 on the th. ASSESSMENT: 1. Congestive heart failure, systolic, acute on chronic, now improved. 2. Diabetes. 3. No obstructive coronary disease per patient. 4. Recent surgery. PLAN: 1. Okay with me for the patient to be released home. I would give her 1 further dose of potassium. 2. Follow up with Dr. John Shahid within 1-2 weeks. 3. Consideration if her heart failure continues to be problematic, Entresto may be an option. She s hould follow up closely with Dr. John Shahid.
[2018-03-18] MEDS: HumaLOG 300 UNITS/3 ML VIAL SC PRN (12:14)
[2018-03-18] MEDS: predniSONE 5 MG TAB PO SCH (12:17)
[2018-03-18 12:31] VITALS: BP 126/61
--- NOTE | 2018-03-18 16:30 | DIS ---
DATE OF ADMISSION: 03/15/2018 DATE OF DISCHARGE: 03/18/2018 PRIMARY CARE PHYSICIAN: Dr. Ricardo Parada DISCHARGE DISPOSITION: Home. PRIMARY DISCHARGE DIAGNOSES: Status post respiratory failure with hypoxia, acute on chronic systolic congestive heart failure, stage C. SECONDARY DISCHARGE DIAGNOSES: Severe mitral regurgitation, status post lumbar laminectomy, hyperten guzman, hiatal hernia, diabetes type 2, nonalcoholic cirrhosis, and thrombocytopenia. PRIMARY PROCEDURE/OPERATION: None. RADIOLOGICAL INVESTIGATION: Echocardiography showed EF 25%-30%, severe mitral regurgitation. CT ang iography was negative for pulmonary embolism. SIGNIFICANT LABORATORY DATA: WBC 7.1, hemoglobin 11.9, platelet 88. Sodium 136, creatinine 1.16, ma gnesium 2.0. Urinalysis normal. CT angiography showed hypodense mass posterior dome of the liver an d for that reason, the patient is advised to follow up with primary care physician for CT abdomen wit h a liver mass protocol. DISCHARGE MEDICATIONS: Xanax 0.25 mg p.o. at bedtime, aspirin 81 mg p.o. daily, calcium with vitamin D 1 tablet p.o. daily, Coreg 25 mg p.o. b.i.d., Keflex 500 mg p.o. b.i.d. to finish course of treatm ent prescribed by neurosurgeon, cetirizine 10 mg p.o. daily, Benadryl 25 mg p.o. at bedtime, Lasix 40 mg p.o. b.i.d., gabapentin 400 mg p.o. b.i.d., insulin 70/30 at 25 units subcu t.i.d., Protonix 40 m g p.o. at bedtime, pentazocine one tablet q.4 h. p.r.n. for pain, potassium citrate 10 mEq p.o. b.i.d ., prednisone 10 mg p.o. daily, Aldactone 25 mg p.o. daily, Diovan 160 mg p.o. b.i.d., vitamin A 10,0 00 units p.o. daily. CONTRAINDICATIONS: None. CODE STATUS: FULL CODE. INPATIENT CONSULTANTS: Dr. Baltazar was consulted while in hospital. TEST RESULTS PENDING ON DISCHARGE: None. ALLERGIES: CLINDAMYCIN, CODEINE, CYPROHEPTADINE, DOXEPIN. DISCHARGE PLAN: Post hospital, the patient will follow up with Dr. Ricardo Parada in 2 weeks. [facility] with [facility]. The patient is instructed to follow up with Dr. John Shahid to discuss about options of LifeVest or AICD. HOSPITAL COURSE: A 72-year-old female who was admitted by Dr. Krystal Sanchez. Please see her H&P for further detail. The patient had recent lumbar surgery and subsequently patient was doing well, but patient was admitted for increasing shortness of breath. The patient does have systolic heart failur e and as per patient, she had negative cardiac catheterization last year and she had EF of around 35% . This time, repeat Echocardiography showed EF 20%-25%. Her EF was worsened and that is why we cons ulted Cardiology and Cardiology recommended to let her follow up with her exhibition carver. I advised th is patient to follow up with exhibition carver for discussion of AICD and a LifeVest. While in hospital, she did not have any arrhythmia. She had significant improvement with IV Lasix an d her hypoxic respiratory failure which she had on admission which was improved. We continued all her home medication as well as upon discharge, the patient was doing very well while in hospital and we advised her to follow up with primary care physician as well. During this admission, we did a CT angiography on admission which showed hypodense lesion in the live r dome and that is why we advised the patient to get followup with primary care physician and get ano ther CT abdomen with a liver mass protocol. Overall, patient is medically stable for discharge. The patient is seen and examined at bedside richard soria. Please see my progress note from today for further detail.
[2018-03-18] MEDS ORDERED: Potassium Chloride 10 MEQ TAB PO SCH (17:00)
== END 2018-03-18 13:30 | disposition home or self-care (01) | DRG 291 ==
LOC: ERS 09:29 → 2NO 12:35
PROVIDERS: ADMIT Internal Medicine; ATTEND Internal Medicine
DX: I11.0 Hypertensive heart disease with heart failure (principal); J96.01 Acute respiratory failure with hypoxia; D69.6 Thrombocytopenia, unspecified; E11.9 Type 2 diabetes mellitus without complications; D72.829 Elevated white blood cell count, unspecified; I34.0 Nonrheumatic mitral (valve) insufficiency; K44.9 Diaphragmatic hernia without obstruction or gangrene; K74.60 Unspecified cirrhosis of liver; I50.23 Acute on chronic systolic (congestive) heart failure; M10.9 Gout, unspecified; Z96.653 Presence of artificial knee joint, bilateral; Z88.5 Allergy status to narcotic agent; Z88.8 Allergy status to other drugs, medicaments and biological substances; Z79.899 Other long term (current) drug therapy; Z79.4 Long term (current) use of insulin; Z79.52 Long term (current) use of systemic steroids; Z79.82 Long term (current) use of aspirin; Z66 Do not resuscitate; Z88.1 Allergy status to other antibiotic agents; Z98.890 Other specified postprocedural states
CPT/HCPCS: 36415; 36416; 71045; 71275; 76001; 80048; 80053; 81003; 82553; 83735; 83880; 84484; 85025; 93005; 93306; 93798; 96374; 96375; A4216; G8987-GO-CI; G8988-GO-CI; G8989-GO-CI; J0670; J1100; J1200; J1650; J1940; J2001; J2250; J2310; J2405; J2704; J3010

== ENCOUNTER 2018-04-16 08:42 | Outpatient (CLI) | payer MEDICARE, OTHER ==
[2018-04-16] MEDS ORDERED: Gadobenate Dimeglumine 529 MG/1 ML (20ML VIAL) ONE (09:00)
--- NOTE | 2018-04-16 15:30 | MRI ---
MRI ABDOMEN WITH AND WITHOUT IV CONTRAST: Date: 04/16/18 HISTORY: Liver mass. FINDINGS: Correlation is made with CT pulmonary angiogram of 03/15/[address] abdomen/pelvis dated 05/27/16. There is a 2.7 cm heterogeneously enhancing lesion in the posterior segment of the right lobe of the liver, which is increased in size since the CT scan of 05/27/16. Irregularity of the liver surface is noted consistent with cirrhosis. The spleen is mildly enlarged, measuring 13.2 cm in largest AP dime nsion. Perisplenic varices are present. There are multiple small cysts in the pancreas, the largest m easuring about 1.0 cm close to the neck. The portal and splenic veins are patent. Small cysts are pre sent in the kidneys on both sides. No free fluid or lymphadenopathy is seen. IMPRESSION: 1. Cirrhosis of the liver with enlarging mass, suspicious for hepatocellular carcinoma. 2. Splenomegaly. 3. Multiple pancreatic cysts. 4. Bilateral renal cysts. POS: [facility]
== END 2018-04-16 08:43 | disposition home or self-care (01) ==
LOC: SCSMRI 08:42
PROVIDERS: ATTEND Internal Medicine Gastroenterology
DX: K74.60 Unspecified cirrhosis of liver (principal); N28.1 Cyst of kidney, acquired; K86.2 Cyst of pancreas; R93.2 Abnormal findings on diagnostic imaging of liver and biliary tract; R16.2 Hepatomegaly with splenomegaly, not elsewhere classified
CPT/HCPCS: 74183; A9579

== ENCOUNTER 2018-08-16 13:16 | Outpatient (CLI) | payer MEDICARE, OTHER ==
[~2018-08-16 13:16] MED LIST: Gadobenate Dimeglumine 529 MG/1 ML (20ML VIAL) ONE
--- NOTE | 2018-08-16 17:04 | MRI ---
MRI OF THE ABDOMEN WITHOUT AND WITH CONTRAST 08/16/18 COMPARISON: 04/16/18 HISTORY: Hepatocellular carcinoma. TECHNIQUE: Multiplanar and multisequence MRI images were obtained of the abdomen without and with IV contrast. FINDINGS: A mass is again seen in the right lobe of the liver measuring 3.1 cm in greatest dimension. Surroundi ng THID is seen. This mass demonstrates peripheral enhancement which is slightly nodular in appearanc e. The central portion of this mass does not demonstrate enhancement and no obvious washout is seen. No portal vein thrombus is seen. The liver is nodular and cirrhotic. The spleen is enlarged measuring 13.2 cm. There are varices seen adjacent to the spleen. There are innumerable cyst in the pancreas. Small nonenhancing foci of high T2 signal in both kidneys likely represent cysts. The adrenal glands are unremarkable. The gallbladder has been removed. No ab dominal adenopathy is seen. IMPRESSION: 1. Cirrhosis with sequela of portal hypertension. 2. Mass seen in the right lobe of the liver is larger than on the prior examination but lacks ce ntral enhancement. This may represent central necrosis of the mass. POS: [facility]
== END 2018-08-16 13:17 | disposition home or self-care (01) ==
LOC: SCSMRI 13:16
PROVIDERS: ATTEND Internal Medicine Gastroenterology
DX: C22.0 Liver cell carcinoma (principal); R16.0 Hepatomegaly, not elsewhere classified; K74.69 Other cirrhosis of liver
CPT/HCPCS: 74183; 82565; A9579